=== PATIENT | female | born 1950 | race Two or more races ===

== ENCOUNTER → 2021-09-07 | Day surgery (SDC) | payer MEDICARE ==
[2021-09-06 11:20] LABS: Basophils # (auto) 0.1 10 ^3/uL (0-0.2); Basophils % (auto) 2.3 % (0.0-2.0); Eosinophils # (auto) 0 10 ^3/uL (0-0.8); Eosinophils % (auto) 0.7 % (0.0-7.0); Hematocrit 42.9 % (36.0-46.0); Hemoglobin 14.6 g/dL (12.2-16.2); Lymphocytes # (auto) 2.1 10 ^3/uL (0.4-5.4); Lymphocytes % (auto) 35.6 % (10.0-50.0); Mean Corpuscular Volume 88.3 fL (80.0-100.0); Monocytes # (auto) 0.5 10 ^3/uL (0-1.3); Monocytes % (auto) 7.9 % (0.0-12.0); Neutrophils # (auto) 3.2 10 ^3/uL (1.6-8.6); Neutrophils % (auto) 53.5 % (37.0-80.0); Nucleated Red Blood Cells % 0.1 %; Red Blood Cells 4.86 10^6/uL (4.0-5.20); Red Cell Distribution Width 14.7 % (11.8-14.3)
[2021-09-06 11:29] LABS: Urine Bacteria FEW /hpf (None Seen); Urine Blood Negative /uL (Negative); Urine Specific Gravity 1.002 (1.001-1.035); Urine WBC 1 /hpf (0 - 5)
[2021-09-06 12:33] LABS: Albumin 3.9 g/dL (3.4-5.0); Calcium 9.7 mg/dL (8.5-10.1); Potassium 3.6 mmol/L (3.5-5.1)
[2021-09-06 12:37] LABS: BUN/Creatinine Ratio 13.4; Bilirubin, Total 0.9 mg/dL (0.2-1.0); Total Protein 7.8 g/dL (6.4-8.2)
[~2021-09-07] VITALS: Ht 157.5 cm; Wt 67.1 kg
[~2021-09-07] MED LIST: BUPIVACAINE W/ EPINEPH 0.5% MPF 30ML VIAL IJ ONE; HYDROmorphone HCL 2 MG/ML VL IV PRN; MEPERIDINE HCL (25 MG/ML) 1ML VIAL ONE; METOCLOPRAMIDE HCL 5MG/ml INJ 2ml VIAL IV PRN; MIDAZOLAM HCL 2MG/2ML 2ml VIAL (1mg/ml) ONE; MORPHINE SULFATE 4 MG/ML SYR/VIAL IV PRN; ONDANSETRON HCL 4 MG/2 ML VIAL ONE; PROPOFOL 10 MG/ML 20 ML IV ONE; SODIUM CHLORIDE LOCK 10 ML ONE; SUCCINYLCHOLINE CHLORIDE 20 MG/ML 10ML VIAL IV ONE; ceFAZolin 1GM/50ML 100 ML IV ONE; fentaNYL CITRATE 100 MCG/2 ML VL ONE
[2021-09-07 18:30] VITALS: BP 176/95
== END | disposition home or self-care (01) ==
LOC: SUR 12:45
PROVIDERS: ATTEND Orthopaedic Surgery
DX: S52.572A Other intraarticular fracture of lower end of left radius, initial encounter for closed fracture (principal); I10 Essential (primary) hypertension; Z20.822 Contact with and (suspected) exposure to COVID-19; X58.XXXA Exposure to other specified factors, initial encounter; Y93.89 Activity, other specified; Y92.89 Other specified places as the place of occurrence of the external cause; Y99.8 Other external cause status
CPT/HCPCS: 25608; 36415; 73100; 76000; 80053; 81001; 85025; C1713; J0330; J0690; J2175; J2250; J2405; J2704; J3010; U0003